=== PATIENT | female | born 1995 | race Asian ===

== ENCOUNTER 2025-05-14 17:12 | Inpatient (IN) | payer BC, SELFPAY ==
[2025-05-14] VITALS (12 sets, daily range): BP systolic 105–145; BP diastolic 74–105
[2025-05-14 10:53] LABS: Hematocrit 40.9 % (37.0-47.0); Hemoglobin 13.7 g/dL (12.0-16.0); Mean Corp Hgb Conc. 33.5 g/dL (33.0-37.0); Mean Corpuscular Volume 85.9 fL (81.0-99.0); Nucleated Red Blood Cells % 0 %; Platelet Count 235 10^3/uL (130-400); Red Cell Dist. Width 13.1 % (11.5-14.5)
[2025-05-14 11:27] LABS: Troponin I 0.025 ng/ml
--- NOTE | 2025-05-14 11:51 | ED.GENMED ---
History of Present Illness
General
Chief Complaint: Chest Pain
Source: patient and spouse
Exam Limitations: none
Time Seen by Provider: 05/14/25 10:44
Nursing documentation reviewed up to this point in time: agreed with
History of Present Illness
History of Present Illness:
30-year-old female with no reported chronic medical issues who was currently 11 weeks presents to the ER with her for evaluation of shortness of breath, palpitations, tachycardia and chest discomfort. Patient works as a
cardiology nurse practitioner. She says that she has been experiencing some mild shortness of breath during this and symptoms have been progressive over the past few weeks. She says that over the past day or 2 she has noticed increasing
palpitations and noted tachycardia. She has had heart rates 120s to 140s at rest. She does have some mild associated chest discomfort. She has not had any cough or fevers or chills. She has not had any significant swelling or pain in the legs.
She does note that she had a presyncopal event a few days ago that she attributed to not eating well. She denies any other complaints. She says she did not have this issue with prior . She denies any known cardiac history.
Review of Systems
Review of Systems
All Other Systems: ROS reviewed and negative except as documented in HPI and ROS
Constitutional: Denies fever
Respiratory: Reports trouble breathing; Denies cough
Cardiac: Reports chest pain and palpitations; Denies diaphoresis
ABD/GI: Denies abdominal pain
: Denies flank pain
Musculoskeletal: Denies neck pain or back pain
Neurological: Reports dizzy; Denies headache
Phy Exam
Physical Exam
Physical Exam:
General: Awake, alert, oriented x3; no acute distress
Head: Normocephalic, atraumatic
Eyes: Conjunctiva normal, sclera anicteric
Throat: Airway intact, handling secretions
Neck: Trachea midline, no JVD noted
Lungs: Clear to auscultation bilaterally, no wheezing, rales, rhonchi
Heart: Tachycardia with regular rhythm, no murmurs, gallops, or rubs
Abd: Soft, non distended, nontender
Neuro: Grossly intact
Extremities: No edema in extremities, equal pulses in all extremities
Scores
Heart Failure Risk
Heart Failure Risk Score: Not Applicable
Heart Score for Chest Pain Patients
STEMI patient?: Not applicable
Withdrawal Assessment of Alcohol
Withdrawal Assessment Completed?: Not applicable
Course
Orders/Labs/Results
Orders:
Orders
05/14/25 10:11
EKG [Electrocardiogram (*1)] Urgent
Reason for Study: Chest Pain
EKG- Treatment ONCE
05/14/25 10:40
BNP [NT-proBNP] Urgent
Complete Blood Count/With Diff Urgent
Troponin I Urgent
05/14/25 11:18
Echo 2D MMode Color/Doppler Urgent
Reason for Study: SOB, CP, tachycardia
05/14/25 11:28
Comprehensive Metabolic Panel Urgent
D-Dimer Urgent
Magnesium Urgent
05/14/25 12:39
US Periph Venous LOWER Ext Lui Urgent
Comment:
Reason For Exam: c/f PE,
05/14/25 15:09
CT Chest PE Study Urgent
Comment:
Reason For Exam: sob, chest pain, tachy, +dimer
05/14/25 15:22
Troponin I Urgent
05/14/25 15:30
0.9% Sodium Chloride 1000 ml [Nss] 1,000 ml IV BOLUS
05/14/25 16:18
Enoxaparin Sodium [Lovenox] 60 mg SC NOW STA
05/14/25 16:21
Consult Hematology [HEMATOLOGY CONSULT] Urgent
Consulting Provider: Oliverio Hernandez
Was physician already notified: Yes
PULMONARY CONSULT Urgent
Consulting Provider: Tanvir,Raminder S.
Was physician already notified: Yes
Abnormal Lab Results
05/14/25 05/14/25 05/14/25
10:40 11:28 15:22
WBC 11.5 H 10^3/uL
(4.8-10.8)
MPV 11.0 H fL
(7.4-10.4)
Abs Immat Gran (auto) 0.1 H 10^3/uL
(0-0.05)
Absolute Neuts (auto) 8.1 H 10^3/uL
(1.4-6.5)
Absolute Monos (auto) 0.8 H 10^3/uL
(0.1-0.6)
Lymphocytes % 20.1 L %
(20.5-51.1)
D-Dimer 5.30 H ug/mlFEU
(0.00-0.50)
Creatinine 0.4 L mg/dL
(0.6-1.0)
Troponin I 0.247 H* D ng/ml
05/14/25 10:40
05/14/25 11:28
Vital Signs
Initial and Last Documented VS:
Initial Vital Signs
Temp Pulse Resp BP Pulse Ox
36.9 C 141 16 145/94 99
05/14/25 10:10 05/14/25 10:10 05/14/25 10:10 05/14/25 10:10 05/14/25 10:10
Last Documented Vital Signs
Temp Pulse Resp BP Pulse Ox
36.9 C 119 16 115/84 97
05/14/25 10:10 05/14/25 15:30 05/14/25 15:30 05/14/25 15:00 05/14/25 15:30
MDM/Problems Addressed
Differential Diagnosis Includes:
Anemia, dysrhythmia, PE, anxiety
MDM/Problems Addressed:
30-year-old female who is currently 11 weeks presents for evaluation of shortness of breath, chest discomfort and palpitations, tachycardia. Heart rate in triage 140, normotensive, no tachypnea or hypoxia, no fever. Heart rate improved to
the 120s during my assessment. EKG appears consistent with sinus tachycardia but concerning with S1Q3T3 pattern. IV placed labs sent off including a CBC and a CMP, troponin, proBNP, D-dimer. Will hold off on chest x-ray for now�her lungs sound
completely clear to auscultation and she has no tachypnea or hypoxia and may require imaging to rule out PE depending on her initial workup and so patient wishes to forego x-ray at this point. I did discuss the case with cardiology to obtain an
echocardiogram on the patient. Will provide some IV fluids. Will reassess after the above.
Initial labs reviewed: CBC shows marginal leukocytosis but no anemia. CMP no clinically significant abnormalities. Troponin negative but detectable at 0.025. proBNP not elevated. Her D-dimer is markedly elevated at 5.3 at this point high concern
for pulmonary embolism. Case was discussed with pulmonology, BAGGAGE INSPECTOR, radiology regarding next best step for workup. Echocardiogram is currently underway and results are pending. Consensus recommendation was to proceed with bilateral lower
extremity ultrasound�if positive can treat empirically for presumed pulmonary embolism. If negative we will proceed with CT chest to rule out PE. Updated patient regarding this recommendation and she is in agreement to proceed with this plan.
Echo results reviewed with cardiology�reportedly normal EF, reportedly no signs of heart strain. Patient stable on reassessment although she remains tachycardic. Awaiting results of DVT study.
DVT study reportedly negative. Patient remains markedly tachycardic. Pulmonary assessed patient, agrees need for rule out PE. Will proceed with CT chest to rule out pulmonary embolism as discussed above.
Repeat troponin significantly uptrending at 0.247. We are awaiting results of CT of the chest. Patient remains tachycardic but normotensive. If PE scan negative would consider cardiomyopathy or myocarditis. Will plan for admission regardless of
results for further assessment and trending of troponins.
CT reviewed by me does appear to show pulmonary embolism. Discussed with pulmonary to review: Recommended initiating treatment with Lovenox, admission to IMU. Discussed with hematology for consultation. Discussed with hospitalist for admission.
Radiologist called back CT�confirmed positive for PE. I did place a call the patient's primary BAGGAGE INSPECTOR (Dr. Montana) and spoke with the on-call service to inform them that patient is being admitted with pulmonary embolism.
*Pulse Oximetry
SaO2: 99
Oxygen Mode of Delivery: Room air
Patient hypoxic: no (99%)
*EKG
Interpreted by ED Provider?: Yes
Heart Rate: 123
Rate: tachycardiac
Rhythm: sinus tachycardia
[place]: normal axis
Interval: normal interval
QRS Pattern: normal QRS
Ischemia: no ischemia (No ischemia but patient does have S1Q3T3)
*Critical Care Note
Total Time (30-74mins, 75-104mins- exclusive of procedures): Not Applicable
Data Reviewed
Source: patient and spouse
Patient Management
Discussion with other providers: PCP (Discussed with patient's primary OB) and Director [employer] (Discussed with cardiology, discussed with pulmonology, discussed with radiology, discussed with BAGGAGE INSPECTOR, discussed with hematology)
ED Attending Note
-
Portions of this chart may have been created with voice recognition software.� Occasional wrong word or��sound alike� substitutions may have occurred due to the inherent limitations of voice recognition software.
Discharge Plan
Departure
Patient Disposition: Admit
Date of Disposition: 05/14/25
Time of Disposition: 16:25
Admit to doctor: Monica
Presentation/result/management discussed w/ accepting MD/DO: Hospitalist
Discharge Problem:
Pulmonary embolism
Referrals:
Ivett Wills MD [Family Provider]
Interventions
Interventions:
*Risk Screen - Suicide Last Done: 05/14/25 10:13
*General Assessment Last Done: 05/14/25 11:11
*Neglect/Abuse Screening Last Done: 05/14/25 10:13
*ED- Fall Risk Assessment Last Done: 05/14/25 10:23
*ED COVID-19 Vaccine History Last Done: 05/14/25 10:23
ED- Cardiac Assessment Last Done: 05/14/25 10:23
Discharge Date and Time
Print Language: BURMESE
[2025-05-14 11:54] LABS: ALT (SGPT) 14 U/L (0-35); AST (SGOT) 19 U/L (14-36); Albumin 4.4 g/dl (3.5-5.0); Alkaline Phosphatase 44 U/L (38-126); Blood Urea Nitrogen 8 mg/dl (7-17); Calcium 9.6 mg/dl (8.4-10.2); Carbon Dioxide 23 mmol/L (22-30); Chloride 106 mmol/L (98-107); Glucose 92 mg/dl (70-99); Magnesium 1.9 mg/dl (1.6-2.3); Potassium 4.2 mmol/L (3.5-5.1); Sodium 137 mmol/L (135-145); Total Protein 7.8 g/dl (6.3-8.2); eGFR > 60.00
[2025-05-14 12:02] LABS: D-Dimer 5.30 ug/mlFEU (0.00-0.50)
[2025-05-14] MEDS: NSS 1000 IV (15:26)
[2025-05-14 16:10] LABS: Troponin I 0.247 ng/ml
[2025-05-14] MEDS: LOVENOX 60 MG SC (16:34)
--- NOTE | 2025-05-14 16:44 | HPS.HSE ---
Addendum entered and electronically signed by Lamine Anderson MD 05/14/25 17:06:
I saw and examined the patient.
The ANATOMIC PATHOLOGIST or PA's note was reviewed and I agree with the note.
Comment:
30F 11week , otherwise healthy, no prior HX PE pw SoB, chest discomfort and palpitation.
She is tachycardic at 120 , normotensive but not hypoxic and not O2 requirement, normotensive.
Chest CT:
Positive for PE with moderate to large clot burden predominantly in the right and left lower lobe lobar arteries, occupying a large volume of the vessel lumen.
Small component extending into the right middle lobe lobar artery.. On the left, a clot involves the peripheral left main pulmonary artery with a small component extending into the upper lobe pulmonary artery.
ECHO:
No strain on echo per cards but trop elevated at 0.247.
ASSESSMENT & PLAN
Submassive Bilateral PE likely provoked in setting of 11 weeks
- HX PE in cousin
- agree with wt base LMWH ( 60mg q12h)
-Consult Pulmonary
-Consult Hematology
-Await Echo result
NIMI setting to pulmonary embolism
-Continue to trend troponin
Code Status: Full Code
IMU
.
Original Note:
Family Physician
-
Family Physician: Ivett Wills MD
Chief Complaint
-
Shortness of Breath and Palpitations
History of Present Illness
Patient is a 30 y/o female currently 11 weeks who presents with shortness of breath, palpitations adn chest discomfort. Patient reports shortness of breath over the past few weeks and has noticed its been getting progressively worse.
Over the past few days she has been experiencing palpitations and has noted tachycardia. She reports associated mild chest discomfort. Work-up in the emergency department is positive for bilateral pulmonary embolism with evidence of right heart
strain. Patient denies any history or DVT/PE. She denies any close family members with history of blood clots but does note her cousin had a blood clot during .
Medical History
Past Medical History
Past Medical History: Reports None
Past Surgical History: Reports None
Social History
Tobacco: Non-smoker
Alcohol: None
Family History
Family History: Other (Denies parents or siblings with blood clots)
Allergies / Home Medications
Allergies reflects when Allergies were last updated in [facility].
Home Medications with original date entered in [facility]
Allergy/Medication List:
Allergies
Allergy/AdvReac Type Severity Reaction Status Date / Time
No Known Allergies Allergy Unverified 05/14/25 15:17
Home Medications
vit no.95-ferrous fumarate 28 mg-folic acid 800 mcg tablet () 1 tab PO DAILY 05/14/25
Review of Systems
-
A 12 point ROS was completed and negative except as noted: Yes
Constitutional: Denies Fever
Respiratory: Reports Trouble Breathing; Denies Cough
Cardiac: Reports Chest Pain and Palpitations
Musculoskeletal: Denies Muscle Pain or Edema
Physical Exam
Vital Signs
Vital Signs
Temp Pulse Resp BP Pulse Ox
98.5 F 119 16 115/84 97
05/14/25 10:10 05/14/25 15:30 05/14/25 15:30 05/14/25 15:00 05/14/25 15:30
Physical Exam
General: Comfortable and Conversant
HEENT: Anicteric and Moist mucous membranes
Respiratory: Clear and Non Labored Respirations
Cardiac: S1/S2, Regular Rhythm and Tachycardia
GI: Soft and Non Tender
Rectal: Deferred by Provider
Musculoskeletal: No Clubbing, No Cyanosis and No Edema
Skin: Warm and Dry
Neuro: Awake, Alert, Oriented and Nonfocal/grossly intact
Psych: Calm
Laboratory Results
-
05/14/25 10:40
05/14/25 11:28
Laboratory Results
Total Bilirubin 0.7 mg/dl (0.2-1.3) 05/14/25 11:28
AST 19 U/L (14-36) 05/14/25 11:28
ALT 14 U/L (0-35) 05/14/25 11:28
Alkaline Phosphatase 44 U/L (38-126) 05/14/25 11:28
Troponin I 0.247 ng/ml H* D 05/14/25 15:22
Peripheral Vascular Ultrasound:
No evidence of right or left lower extremity deep venous thrombosis.
Chest CT:
Positive for pulmonary embolism. Moderate to large clot burden predominantly in the right and left lower lobe lobar arteries, occupying a large volume of the vessel lumen. Small component extending into the right middle lobe lobar artery.. On the
left, a clot involves the peripheral left main pulmonary artery with a small component extending into the upper lobe pulmonary artery.
Right ventricular heart strain
Data Reviewed
-
CT Scan: Report Reviewed by me
Ultrasound: Report Reviewed by me
Lab Data: Labs Reviewed by me
Impression/Plan
-
Submassive Bilateral Pulmonary Embolism, likely provoked in setting of
-Admit to IMU
-Consult Pulmonary
-Consult Hematology
-Continue Lovenox
-Await Echo result
Non-Ischemic Myocardial Injury setting to pulmonary embolism
-Continue to trend troponin
Code Status: Full Code
--- NOTE | 2025-05-14 17:34 | CON.PUL ---
Consultation
Consultation Request
Date/Time Consultation Requested: 05/14/2025
Date/Time Consultation Performed: 05/14/2025
Medical History
-
Chief Complaint: Dyspnea, chest discomfort, near syncope.
History of Present Illness:
Patient is a 30 y/o female currently 11 weeks who presented to ED with shortness of breath, palpitations ane chest discomfort. Also reported an episode of lightheadedness and near syncope last week. Today patient felt palpitations as
well we chest pressure which prompted visit to ED. Patient had venous doppler exam which was negative for DVT. In view if high D-dimer, typical symptoms and high pre-test probability of VTE event, decision was made to proceed with CTA for further
evaluation after consensus discussion among ED, Pulmonary, Executive Services Administrator and Radiology providers. Patient was noted to have sub-massive PE and was admitted to the Hospitalist service for further management. Pulmonary consult was requested for further
input.
Medical History
Past Medical History
Past Medical History: Reports None
Past Surgical History: Reports None
Social History
Tobacco: Non-smoker, no alcohol or vaping. No Marijuana use.
Alcohol: None
Family History
Family History: Other (Denies parents or siblings with blood clots)
Allergies / Home Medications
Allergies / Home Medications
Allergies
Allergy/AdvReac Type Severity Reaction Status Date / Time
No Known Allergies Allergy Unverified 05/14/25 15:17
Home Medications
�Medication �Instructions �Recorded �Confirmed �Last Taken �Type
vit no.95-ferrous 1 tab PO DAILY 05/14/25 05/14/25 05/14/25 History
fumarate 28 mg-folic acid 800 mcg
tablet ()
Review of Systems
-
Constitutional: No Symptoms
EENT: No Symptoms
Respiratory: Other (Mild dyspnea with activity. No pleuritic pain)
Cardiac: Chest Pain (Chest pressure, palpitations )
Abdomen/GI: No Symptoms
: No Symptoms
Musculoskeletal: No Symptoms
Neuro: No Symptoms
Vitals / Labs / Diagnostic Testing
Vital Signs
Temp Pulse Resp BP Pulse Ox
98.5 F 123 22 118/85 99
05/14/25 10:10 05/14/25 17:00 05/14/25 17:00 05/14/25 16:37 05/14/25 17:00
Lab Data
05/14/25 10:40
05/14/25 11:28
Diagnostic Testing:
Physical Exam
-
HEENT: Normocephalic
Cardiovascular: S1/S2 (Sinus tachycardia noted)
Respiratory: Clear
GI: Soft and Non Distended
Neurology: Awake, Alert and Oriented
Skin: Warm
General: Comfortable
Assessment
-
#1. Acute PE, sub-massive, bilateral.
- Normotensive and not needing any supplemental O2. Tachycardia noted.
- Elevated biomarkers (troponin), reported strain on CT, await formal ECHO read.
- Admit to the hospital, Lovenox 1 mg/kg s.c. Stat followed by q12h dosing. Recommend hematology consult.
- Monitor closely, continue cardiac telemetry
- Tachycardia noted, related to underlying moderate to large clot burden
- Etiology: Likely provoked in the setting of . No prior h/o VTE during her prior , no family history, no prior h/o miscarriage. No known diagnoses of Lupus, RA or other auto-immune diseases. Await Hematology recommendations
regarding additional work up. Antiphospholipid Ab panel in AM.
- Tachycardia responded well to IVF Bolus 1 ltr. Will start LR infusion for another 1 ltr.
Other diagnoses:
- , currently 11 weeks
Data:
CT-PE 04/2025: Positive for pulmonary embolism. Moderate to large clot burden predominantly in the right and left lower lobe lobar arteries, occupying a large volume of the vessel lumen. Small component extending into the right middle lobe lobar
artery.. On the left, a clot involves the peripheral left main pulmonary artery with a small component extending into the upper lobe pulmonary artery.
Pulmonary artery branching order level of the most proximal pulmonary embolism: Peripheral left main pulmonary artery.
Right ventricular heart strain. The RV: LV ratio of 1.2.
Lower Ext venous dupplex 04/2025: No lower extremity DVT
--- NOTE | 2025-05-14 18:42 | PTCARENOTE ---
Received patient on admission from ED via stretcher; patient able to ambulate to bed without assistance. Denies CP/SOB; ST on monitor. Lungs clear t/o. at bedside; brought patient dinner. Patient requested to take her own vitamins;
both bottles sent to pharmacy. Yen pharmacist made aware and will adjust order.
[2025-05-14] MEDS: LR 1000 IV (21:00)
[2025-05-14 21:41] LABS: Troponin I 0.179 ng/ml
[2025-05-15] VITALS (14 sets, daily range): BP systolic 89–107; BP diastolic 56–85
[2025-05-15] MEDS: LOVENOX 60 MG SC ×2 (05:15→17:09)
[2025-05-15 05:57] LABS: Hematocrit 38.7 % (37.0-47.0); Hemoglobin 13.1 g/dL (12.0-16.0); Mean Corp Hgb Conc. 33.9 g/dL (33.0-37.0); Mean Corpuscular Volume 85.2 fL (81.0-99.0); Platelet Count 209 10^3/uL (130-400); Red Cell Dist. Width 13.1 % (11.5-14.5)
[2025-05-15 06:26] LABS: Troponin I 0.064 ng/ml
--- NOTE | 2025-05-15 06:34 | PTCARENOTE ---
No acute changes overnight. stayed overnight at bedside. LR @ 100mL/hr. Patient up ad boy to BR. Olga BARILLAS. Sp02 WNL. No gi/gu complaints. NSR/ST on telemetry. HR better controlled this morning; 80-100s. HR 100-140s when OOB last night.
Two brief episodes HR 150s. Patient denies any lightheadedness or dizziness. Call barron & tray table within reach.
--- NOTE | 2025-05-15 07:21 | W.PN.HOSP.TC ---
Today's Communication/Plan
-
Continue Lovenox 60mg q12h
Continue telemetry
Check factor V Leiden deficiency and prothrombin gene mutation
awaiting heme consult
Assessment / Plan
Assessment / Plan
30 y/o female currently 11 weeks who presented to ED with shortness of breath, palpitations and chest discomfort.
#Acute PE, sub-massive, bilateral.
- Mild dyspnea on exertion otherwise stable.
- Likely provoked in the setting of . No previous history of VTE.
- Intermittent tachycardia; likely secondary to underlying clot burden
- Initial D-dimer of 5.3
- Elevated troponin, reported strain on CT; however echo without any signs of heart strain
- Awaiting Hematology recommendations regarding additional work up. Antiphospholipid Ab panel pending
- Lovenox 1 mg/kg s.c. q12h dosing.
- Appreciate manager audio input
-Check factor V Leiden deficiency and prothrombin gene mutation
# NIMI setting to pulmonary embolism
- Now down trending troponin
# Leukocytosis
- Likely stress-induced; now resolved
Other diagnoses:
- , currently 11 weeks
Data:
CT-PE 04/2025: Positive for pulmonary embolism. Moderate to large clot burden predominantly in the right and left lower lobe lobar arteries, occupying a large volume of the vessel lumen. Small component extending into the right middle lobe lobar
artery.. On the left, a clot involves the peripheral left main pulmonary artery with a small component extending into the upper lobe pulmonary artery.
Pulmonary artery branching order level of the most proximal pulmonary embolism: Peripheral left main pulmonary artery.
Right ventricular heart strain. The RV: LV ratio of 1.2.
Lower Ext venous dupplex 04/2025: No lower extremity DVT
TRANSTHORACIC ECHOCARDIOGRAM 05/14/25:
SUMMARY
1. Left ventricular ejection fraction is normal with an ejection fraction of 52 % by River's biplane method of discs.
2. No evidence of pericardial effusion.
3. Normal left ventricle size and wall thickness.
4. Indexed left atrial volume is within normal range (15-34 ml/m2).
5. Moderate to severe tricuspid regurgitation.
6. Right ventricular cavity size cavity is mildly dilated.
7. Right ventricular systolic function is mildly decreased.
8. Tricuspid valve opens normally. moderate to severe tricuspid regurgitation. Estimated pulmonary artery pressure of 42 mmHg assuming a right atrial pressure of 3 mmHg.
CODE STATUS: Full code
Anticipated Discharge: Within 24 hours
Subjective/Interval History
-
Date of Service: May 15, 2025
Seen and examined at bedside. Patient sitting comfortably in the bed. Offers no new complaints. AFVSS
Objective Data
-
Labs:
Laboratory Results
05/15/25
05:27
WBC 10.4
Hgb 13.1
Hct 38.7
Plt Count 209
Vital Signs:
Vital Signs
Temp Pulse Resp BP Pulse Ox
98.3 F 98 18 92/67 98
05/15/25 05:15 05/15/25 06:00 05/14/25 20:01 05/15/25 06:00 05/15/25 06:00
I&O
05/14/25 05/15/25 05/16/25
06:59 06:59 06:59
Intake Total 480 / 480
Balance 480 / 480
Review of Systems
-
All other systems: Reviewed and negative (Except as noted)
Respiratory: Reports No Symptoms (Mild dyspnea with exertion)
Cardiac: Reports Palpitations
Physical Exam
-
General: Well Developed and Well Nourished
HEENT: Normocephalic
Respiratory: Clear to Auscultation and Non Labored Respirations
Cardiac: S1/S2 and Tachycardic
GI: Soft and Nontender
Skin: Warm and Dry
Neuro: Awake, Alert and Oriented
Psych: Calm
Data Reviewed
-
CT Scan: Report Reviewed by me
Ultrasound: Report Reviewed by me
Labs: Labs Reviewed by me, Discussed with Patient and Discussed with Family
Old Records: Reviewed
[2025-05-15] MEDS: NON-FORMULARY ITEM 2 UNIT PO (08:03)
[2025-05-15] MEDS: NON-FORMULARY ITEM 1 UNIT PO (08:04)
--- NOTE | 2025-05-15 08:44 | CON.ONC ---
Impression
Impression
30yoF PMH eczema presenting with submassive bilateral PE and R heart strain in setting of . Continued BARILLAS. Tachycardia improving but HR still elevated to 110s when speaking. BP 92/67. Afebrile.
Prior with gestational diabetes managed with diet and no other complications. FH antiphospholipid syndrome in cousin. D dimer 5.3. Troponin 0.064. Ab labs pending
Echo:
Left ventricular ejection fraction is normal with an ejection fraction of 52 % by River's biplane method of discs.
Moderate to severe tricuspid regurgitation.
Right ventricular cavity size cavity is mildly dilated. Right ventricular systolic function is mildly decreased.
Plan
Plan
Pulmonary embolus
- Continue on lovenox through and period. High risk .
- Follow up outpt with stroboroma operator. Antiphospholipid abs pending. If negative, further work up can be completed outpt.
Patient History
History of Present Illness
30yoF PMH eczema 11wk presenting with SOB and palpitations.
Pt describes 1 wk of SOB that she initially attributed to being . 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 On exam in the ED, there
was no evidence of DVT with elevated d-dimer that prompted a CTA with evidence of submassive PE. Echo demonstrates moderate to severe tricuspid regurgitation.
Today, pt reports resolved SOB and tachycardia. Denies swelling, abdominal pain, blurry vision, headache, dizziness. She reports improving SOB but continued dyspnea on exertion.
Pt reports no FH PE or clotting. She reports she has cousin who had multiple miscarriages and possibly diagnsoed with antiphospholipid syndrome. The sister of this cousin also recently had a miscarriage of unknown origin.
Past-Medical/Surgical History
Prior : gestational diabetes managed with diet. Denies hx pre-eclampsia
Patient Medication
�Medication �Instructions �Recorded �Confirmed �Last Taken �Type
vit no.95-ferrous 1 tab PO DAILY Supplement 05/14/25 05/14/25 05/14/25 History
fumarate 28 mg-folic acid 800 mcg
tablet ()
Active Medications
Generic Name Dose Route Start Last Admin
Trade Name Freq PRN Reason Stop Dose Admin
Acetaminophen 650 mg 05/14/25 18:09
Acetaminophen 325 Mg Tablet PO 06/11/25 18:08
Q4HPRN PRN
mild pain/temp > 100.4 F
Enoxaparin Sodium 60 mg 05/15/25 06:00 05/15/25 05:15
Enoxaparin Sodium 60 Mg/0.6 Ml Syringe SC 06/12/25 05:59 60 mg
Q12H JESSICA Administration
Once Daily 0 unit 05/15/25 08:00 05/15/25 08:04
- 1 Tab Daily PO 06/12/25 07:59 1 unit
DAILY JESSICA Administration
Dha Fish 0 unit 05/15/25 08:00 05/15/25 08:03
Oil Supplement - 2 PO 06/12/25 07:59 2 unit
Soft Gels Po Daily DAILY JESSICA Administration
Physical Exam
-
General: Well Developed, Well Nourished, No Apparent Distress and Comfortable
HEENT: Moist Mucous Membranes
Cardiology: Normal Sinus Rhythm and Other (loud HR)
Pulmonary: Clear
GI: Soft
Musculoskeletal: No Clubbing and No Edema
Extremities: Pulses Present
Neurology: Non Focal
Skin: Warm and Dry
Psych: Calm
Labs
Lab Results
WBC 10.4 10^3/uL (4.8-10.8) 05/15/25 05:27
RBC 4.54 10^6/uL (4.20-5.40) 05/15/25 05:27
Hgb 13.1 g/dL (12.0-16.0) 05/15/25 05:27
Hct 38.7 % (37.0-47.0) 05/15/25 05:27
MCV 85.2 fL (81.0-99.0) 05/15/25 05:27
MCH 28.9 pg (27.0-31.0) 05/15/25 05:27
MCHC 33.9 g/dL (33.0-37.0) 05/15/25 05:27
RDW 13.1 % (11.5-14.5) 05/15/25 05:27
Plt Count 209 10^3/uL (130-400) 05/15/25 05:27
MPV 11.0 fL (7.4-10.4) H 05/15/25 05:27
Abs Immat Gran (auto) 0.1 10^3/uL (0-0.05) H 05/14/25 10:40
Absolute Neuts (auto) 8.1 10^3/uL (1.4-6.5) H 05/14/25 10:40
Absolute Lymphs (auto) 2.3 10^3/uL (1.2-3.4) 05/14/25 10:40
Absolute Monos (auto) 0.8 10^3/uL (0.1-0.6) H 05/14/25 10:40
Absolute Eos (auto) 0.2 10^3/uL (0-0.7) 05/14/25 10:40
Absolute Basos (auto) 0.1 10^3/uL (0-0.2) 05/14/25 10:40
Immature Gran % 0.4 % (0-0.5) 05/14/25 10:40
Neutrophils % 70.8 % (42.2-75.2) 05/14/25 10:40
Lymphocytes % 20.1 % (20.5-51.1) L 05/14/25 10:40
Monocytes % 6.6 % (1.7-9.3) 05/14/25 10:40
Eosinophils % 1.6 % (0-6) 05/14/25 10:40
Basophils % 0.5 % (0-2) 05/14/25 10:40
Creatinine 0.4 mg/dL (0.6-1.0) L 05/14/25 11:28
Vital Signs
Vital Signs
Temp Pulse Resp BP Pulse Ox
98.3 F 98 18 92/67 98
05/15/25 05:15 05/15/25 06:00 05/14/25 20:01 05/15/25 06:00 05/15/25 06:00
--- NOTE | 2025-05-15 10:22 | W.PN.PUL.V3 ---
Today's Communication / Plan
-
Continue Lovenox
Increase activity
Monitor tachycardia
Outpatient pulmonary and hematologic follow-up
Assessment
-
#1. Acute PE, sub-massive, bilateral-possibly provoked from underlying
Respiratory status has improved
Supplemental oxygen if needed-currently on room air
Incentive spirometry
Pulmonary embolism unclear if provoked from underlying or underlying hypercoagulable state
Continue Lovenox
Hematology evaluation-type of anticoagulation and length of therapy
No previous clots, no family history, no history of miscarriages, no known underlying rheumatologic disorder
Hypercoagulable workup
Lower extremity ultrasound without evidence for DVT
CT chest summarized below
Troponin trending down
Echocardiogram 05/14/2025-EF 52%, moderate to severe tricuspid regurgitation, right ventricular cavity size mildly dilated, right ventricular systolic function mildly decreased, PA systolic estimated 42
Eventual follow-up echocardiogram
Nutrition
Begin ambulation and monitor heart rate response
Reviewed with at the bedside
Anticipate discharge in the next 24 if continues to improve
Outpatient pulmonary follow-up to ensure clot resolution
Outpatient hematology follow-up
Other diagnoses:
- , currently 11 weeks
Data:
CT-PE 04/2025: Positive for pulmonary embolism. Moderate to large clot burden predominantly in the right and left lower lobe lobar arteries, occupying a large volume of the vessel lumen. Small component extending into the right middle lobe lobar
artery.. On the left, a clot involves the peripheral left main pulmonary artery with a small component extending into the upper lobe pulmonary artery.
Pulmonary artery branching order level of the most proximal pulmonary embolism: Peripheral left main pulmonary artery.
Right ventricular heart strain. The RV: LV ratio of 1.2.
Lower Ext venous dupplex 04/2025: No lower extremity DVT
Subjective Data
-
Date of Service:
Date of Service: May 15, 2025
Chief Complaint: Pulmonary Follow Up and VTE Follow Up
Subjective:
Less short of breath, still somewhat tachycardic, no chest pain, abdominal pain, pleurisy, chest congestion or productive cough
Review of Systems
General: Other (Per HPI)
Objective Data
Data Reviewed
Vital Signs / I&O:
Vital Signs
Temp Pulse Resp BP Pulse Ox
98.4 F 108 18 100/77 98
05/15/25 07:00 05/15/25 08:00 05/14/25 20:01 05/15/25 08:00 05/15/25 08:00
Intake and Output
05/14/25 05/15/25 05/16/25
06:59 06:59 06:59
Intake Total 480 / 480
Balance 480 / 480
SaO2: 98
Physical Exam
General: Respiratory Distress (n) and Comfortable
HEENT: Normocephalic, Anicteric and Moist Mucous Membranes
Cardiovascular: Regular Rhythm
Respiratory: Wheeze (n), Crackles (n), Rhonchi (n), Non-Labored Respirations and Accessory Resp Muscle Use (n)
GI: Soft and Non Distended
Neurology: Awake, Alert and No Motor Deficits
Skin: Warm, Good Color and Cyanosis (n)
Labs/Micro/Reports
Lab Data
05/15/25 05:27
05/14/25 11:28
--- NOTE | 2025-05-15 14:01 | PTCARENOTE ---
Assumed care of patient at beginning of this shift from previous RN with O2 10L midflow in use. Able to wean to 8L midflow while OOB to chair; needed to be increased when getting back into bed: briefly to 12L then to 10L midflow. Some BARILLAS noted,
otherwise asymptomatic. Patient has her own nicotine lozenges which she states she uses for anxiety; prn order entered by Dr Alberto that patient may use her own. Pharmacist checked and provided bar code to scan. Daughter at bedside when Dr Alberto and Dr
Lizaekehoang in to see patient. CM in to see patient and daughter. See worklist for full assessment and vital signs; see MAR for med administration.
--- NOTE | 2025-05-15 17:09 | CM ---
analytic manager reviewed patient's chart and met with patient and patient lives with spouse in a 2 story home, patient is independent with adl's and ambulation, no dme, home when stable, no needs.
PCP: Ivett Wills
Pharmacy: [facility] in [place].
--- NOTE | 2025-05-15 19:14 | PTCARENOTE ---
Reviewed lovenox injection with patient; she was able to self-inject with little cuing. She stated she felt comfortable with injection.
--- NOTE | 2025-05-15 21:47 | PTCARENOTE ---
Patient aao x3 since start of shift, affect pleasant, patient able to make needs known and using call barron appropriately. NSR to ST on the monitor. Lungs cta throughout, slight BARILLAS noted with ambulation, 98% on ra. Patient denies pain, call barron
within reach. Will continue to monitor patient closely.
[2025-05-16] VITALS (10 sets, daily range): BP systolic 88–112; BP diastolic 57–76
[2025-05-16] MEDS: LOVENOX 60 MG SC (05:34)
--- NOTE | 2025-05-16 05:39 | PTCARENOTE ---
Patient educated on Lovenox injection. Patient demonstrated correct injection technique, no further questions or concerns.
[2025-05-16 06:12] LABS: Hematocrit 35.0 % (37.0-47.0); Hemoglobin 12.0 g/dL (12.0-16.0); Mean Corp Hgb Conc. 34.3 g/dL (33.0-37.0); Mean Corpuscular Volume 84.5 fL (81.0-99.0); Platelet Count 213 10^3/uL (130-400); Red Cell Dist. Width 12.9 % (11.5-14.5)
[2025-05-16 06:22] LABS: Blood Urea Nitrogen 7 mg/dl (7-17); Calcium 9.2 mg/dl (8.4-10.2); Carbon Dioxide 21 mmol/L (22-30); Chloride 106 mmol/L (98-107); Estimated Creatinine Clearance 106 ml/min; Glucose 94 mg/dl (70-99); Potassium 4.3 mmol/L (3.5-5.1); Sodium 134 mmol/L (135-145); eGFR > 60.00
--- NOTE | 2025-05-16 07:20 | W.PN.HOSP.TC ---
Today's Communication/Plan
-
Continue Lovenox upon discharge
Outpatient follow-up with pulmonology and hematology.
Pending labs: Antiphospholipid antibodypanel, prothrombin gene mutation and factor V mutation
Assessment / Plan
Assessment / Plan
30 y/o female currently 11 weeks who presented to ED with shortness of breath, palpitations and chest discomfort.
#Acute PE, sub-massive, bilateral.
- Mild dyspnea on exertion otherwise stable.
- Likely provoked in the setting of . No previous history of VTE.
- Intermittent tachycardia; likely secondary to underlying clot burden
- Initial D-dimer of 5.3
- Elevated troponin, reported heart strain on CT and echo
- Antiphospholipid Ab panel pending
- Lovenox 60mg (1 mg/kg) s.c. q12h dosing.; Continue until close to due date.
- Appreciate installation & maintenance executive and heme/Onc input
- factor V Leiden deficiency and prothrombin gene mutation labs pending
- Outpatient pulmonary and hematologic follow-up
# NIMI setting to pulmonary embolism
- Peaked and trended down
# Leukocytosis
- Likely stress-induced; borderline
Other diagnoses:
- , currently 11 weeks
Data:
CT-PE 04/2025: Positive for pulmonary embolism. Moderate to large clot burden predominantly in the right and left lower lobe lobar arteries, occupying a large volume of the vessel lumen. Small component extending into the right middle lobe lobar
artery.. On the left, a clot involves the peripheral left main pulmonary artery with a small component extending into the upper lobe pulmonary artery.
Pulmonary artery branching order level of the most proximal pulmonary embolism: Peripheral left main pulmonary artery.
Right ventricular heart strain. The RV: LV ratio of 1.2.
Lower Ext venous dupplex 04/2025: No lower extremity DVT
TRANSTHORACIC ECHOCARDIOGRAM 05/14/25:
SUMMARY
1. Left ventricular ejection fraction is normal with an ejection fraction of 52 % by River's biplane method of discs.
2. No evidence of pericardial effusion.
3. Normal left ventricle size and wall thickness.
4. Indexed left atrial volume is within normal range (15-34 ml/m2).
5. Moderate to severe tricuspid regurgitation.
6. Right ventricular cavity size cavity is mildly dilated.
7. Right ventricular systolic function is mildly decreased.
8. Tricuspid valve opens normally. moderate to severe tricuspid regurgitation. Estimated pulmonary artery pressure of 42 mmHg assuming a right atrial pressure of 3 mmHg.
CODE STATUS: Full code
Anticipated Discharge: Today
Subjective/Interval History
-
Date of Service: May 16, 2025
Seen and examined at bedside. Patient sitting comfortably in the bed. Offers no new complaints. AFVSS. Reports significant improvement in dyspnea on exertion
Objective Data
-
Labs:
Laboratory Results
05/16/25
05:48
WBC 11.7 H
Hgb 12.0
Hct 35.0 L
Plt Count 213
Sodium 134 L
Potassium 4.3
Chloride 106
Carbon Dioxide 21 L
BUN 7
Creatinine 0.4 L
Glucose 94
Calcium 9.2
Vital Signs:
Vital Signs
Temp Pulse Resp BP Pulse Ox
98.3 F 98 18 112/66 99
05/16/25 02:29 05/16/25 00:04 05/14/25 20:01 05/16/25 00:04 05/16/25 00:04
I&O
05/15/25 05/16/25 05/17/25
06:59 06:59 06:59
Intake Total 480 / 480 480 / 480
Balance 480 / 480 480 / 480
Review of Systems
-
All other systems: Reviewed and negative (Except as noted)
Respiratory: Reports No Symptoms (Mild dyspnea with exertion)
Physical Exam
-
General: Well Developed, Well Nourished and No Apparent Distress
HEENT: Normocephalic
Respiratory: Clear to Auscultation and Non Labored Respirations
Cardiac: S1/S2 and Tachycardic
GI: Soft, Nontender and Nondistended
Skin: Warm and Dry
Neuro: Awake, Alert and Oriented
Psych: Calm
Data Reviewed
-
Labs: Labs Reviewed by me, Discussed with Physician and Discussed with Patient
--- NOTE | 2025-05-16 08:41 | W.PN.ONC ---
Today's Communication / Plan
-
Plan reviewed with attending.
Impression
Impression
30yoF PMH eczema presenting with submassive bilateral PE and R heart strain in setting of . Improved BARILLAS. Tachycardia improving. Afebrile vitals stable.
Prior with gestational diabetes managed with diet and no other complications. FH antiphospholipid syndrome in cousin. D dimer 5.3. Troponin 0.064. Ab labs pending
Pt reports long flight to [place] about 2 weeks ago. Denies lower leg swelling, calf pain.
Echo:
Left ventricular ejection fraction is normal with an ejection fraction of 52 % by River's biplane method of discs.
Moderate to severe tricuspid regurgitation.
Right ventricular cavity size cavity is mildly dilated. Right ventricular systolic function is mildly decreased.
Plan
Plan
Pulmonary embolus
- Continue on therapeutic lovenox through and period.
- Follow up outpt with head counselor in 4-6wks. Antiphospholipid abs pending. Please reach out sooner with any questions or concerns.
Subjective/Objective
Subjective/Objective
This morning pt reports improving BARILLAS. She has been ambulating around unit.
PE:
Pulm: clear lung sounds bilaterally
Cardiac: Tachycardic, normal rhythm
Extremities: no edema or erythema
Vital Signs:
Vital Signs
Temp Pulse Resp BP Pulse Ox
98.5 F 98 18 112/66 99
05/16/25 08:08 05/16/25 00:04 05/14/25 20:01 05/16/25 00:04 05/16/25 00:04
Lab Results:
Laboratory Data
WBC 11.7 10^3/uL (4.8-10.8) H 05/16/25 05:48
Hgb 12.0 g/dL (12.0-16.0) 05/16/25 05:48
Plt Count 213 10^3/uL (130-400) 05/16/25 05:48
eGFR > 60.00 05/16/25 05:48
[2025-05-16] MEDS: NON-FORMULARY ITEM 2 UNIT PO (09:06)
[2025-05-16] MEDS: NON-FORMULARY ITEM 1 UNIT PO (09:08)
--- NOTE | 2025-05-16 10:37 | W.PN.PUL.V3 ---
Today's Communication / Plan
-
Lovenox continues
Stable for proposed discharge.
Eventual outpatient pulmonary follow-up with PFTs/ Follow-up CT chest.
Additional hypercoagulable workup as an outpatient
Assessment
-
#1. Acute PE, sub-massive, bilateral-possibly provoked from underlying
Respiratory status continues to improve
Supplemental oxygen if needed-currently on room air
Incentive spirometry encouraged.
Pulmonary embolism unclear if provoked from underlying or underlying hypercoagulable state
Continue Lovenox
Hematology evaluation-type of anticoagulation and length of therapy-Correspondence reviewed-suspected pulmonary embolism provoked by and air travel and may have started and pelvic veins as lower extremity Dopplers were negative
No previous clots, no family history, no history of miscarriages, no known underlying rheumatologic disorder
Hypercoagulable workup
Lower extremity ultrasound without evidence for DVT
CT chest summarized below
Troponin trending down
Echocardiogram 05/14/2025-EF 52%, moderate to severe tricuspid regurgitation, right ventricular cavity size mildly dilated, right ventricular systolic function mildly decreased, PA systolic estimated 42
Eventual follow-up echocardiogram
Nutrition
Begin ambulation and monitor heart rate response
Reviewed with at the bedside
.
Patient stable for proposed discharge
Outpatient pulmonary follow-up to ensure clot resolution
Outpatient hematology follow-up
Other diagnoses:
- , currently 11 weeks
Data:
CT-PE 04/2025: Positive for pulmonary embolism. Moderate to large clot burden predominantly in the right and left lower lobe lobar arteries, occupying a large volume of the vessel lumen. Small component extending into the right middle lobe lobar
artery.. On the left, a clot involves the peripheral left main pulmonary artery with a small component extending into the upper lobe pulmonary artery.
Pulmonary artery branching order level of the most proximal pulmonary embolism: Peripheral left main pulmonary artery.
Right ventricular heart strain. The RV: LV ratio of 1.2.
Lower Ext venous dupplex 04/2025: No lower extremity DVT
Subjective Data
-
Date of Service:
Date of Service: May 16, 2025
Chief Complaint: Pulmonary Follow Up and VTE Follow Up
Subjective:
She feels much improved. She does not insurance breath, or tachycardia is much improved, she offers no complaints, chest pain, pleurisy, productive cough, or abdominal pain
Review of Systems
General: Other ( per HPI)
Objective Data
Data Reviewed
Vital Signs / I&O:
Vital Signs
Temp Pulse Resp BP Pulse Ox
98.5 F 107 18 107/67 98
05/16/25 08:08 05/16/25 09:03 05/14/25 20:01 05/16/25 09:03 05/16/25 09:25
Intake and Output
05/15/25 05/16/25 05/17/25
06:59 06:59 06:59
Intake Total 480 / 480 480 / 480
Balance 480 / 480 480 / 480
SaO2: 98
Physical Exam
General: Respiratory Distress (n) and Comfortable
HEENT: Normocephalic, Anicteric and Moist Mucous Membranes
Cardiovascular: Regular Rhythm
Respiratory: Wheeze (n), Crackles (n), Rhonchi (n), Non-Labored Respirations and Accessory Resp Muscle Use (n)
GI: Soft and Non Distended
Neurology: Awake, Alert and No Motor Deficits
Skin: Warm, Good Color and Cyanosis (n)
Labs/Micro/Reports
Lab Data
05/16/25 05:48
05/16/25 05:48
--- NOTE | 2025-05-16 12:48 | CM ---
Patient will d/c home today
No CM needs at this time
Plan: Home, no needs
--- NOTE | 2025-05-16 13:25 | W.DCSUMMARY ---
Documented by User: Dillon Hair MD, Resident 05/16/25 13:38
Discharge Summary
Discharge Data
Date of Admission: 05/14/25
Date of Discharge: 05/16/25
-
Pending Results: Yes
Hospital Course
Discharging Physician : Dillon Hair MD ; David San DO
Disposition : Home
Primary care physician : Ivett Johnson
Principal Discharge diagnosis : Acute pulmonary embolism, sub-massive, bilateral
Chronic Discharge diagnosis : none
Hospital Course : 30 y/o female currently 11 weeks who presented to ED with shortness of breath, palpitations and chest discomfort. CT showed b/l PE.
1- Acute PE, sub-massive, bilateral.
Initial EKG appears consistent with sinus tachycardia but concerning with S1Q3T3 pattern. D-dimer was elevated. DVT study was negative. Plan was made to get a CT PE study after discussion with the patient. Patient was tachycardic with elevated
troponins of 0.247 which later trended down. Her dyspnea on exertion also improved before discharge. CT showed bilateral PE and she was started on weight-based Lovenox and admitted, pulmonology and hematology was consulted which follow the patient
during her stay at the hospital. Echo was obtained with results below. Additional lab testing including antiphospholipid antibody panel factor V Leiden mutation and prothrombin gene mutation were ordered however the results remain pending at the
time of discharge. There was significant improvement in her symptoms and she was discharged with instructions to continue Lovenox 60 mg every 12 hours. Advised to follow-up outpatient with family doctor and [facility] [facility] [facility] within 1 week. Follow-up with
outpatient hematology in 2 to 3 weeks as well as outpatient pulmonology for additional/repeat testing possibly repeat CAT scan in 4 to 6-week. Patient verified understanding. Strict return precautions were reviewed with the patient. Patient is
aware that she will have to stay on Lovenox for the duration of and possibly next 6 weeks. Additional details will be discussed by hematology outpatient.
Important imaging findings : US Periph Venous LOWER Ext Lui:
No evidence of right or left lower extremity deep venous thrombosis.
CT Chest PE Study: Examination is positive for pulmonary embolism. Moderate to large clot burden predominantly in the right and left lower lobe lobar arteries, occupying a large volume of the vessel lumen. On the right, there is a small component
extending into the right middle lobe lobar pulmonary artery. On the left, a clot involves the peripheral left main pulmonary artery with a small component extending into the upper lobe pulmonary artery.
Pulmonary artery branching order level of the most proximal pulmonary embolism: Peripheral left main pulmonary artery.
Right ventricular heart strain. The RV: LV ratio of 1.2.
Procedure findings : TRANSTHORACIC ECHOCARDIOGRAM REPORT:
SUMMARY
1. Left ventricular ejection fraction is normal with an ejection fraction of 52 % by River's biplane method of discs.
2. No evidence of pericardial effusion.
3. Normal left ventricle size and wall thickness.
4. Indexed left atrial volume is within normal range (15-34 ml/m2).
5. Moderate to severe tricuspid regurgitation.
6. Right ventricular cavity size cavity is mildly dilated.
7. Right ventricular systolic function is mildly decreased.
8. Tricuspid valve opens normally. moderate to severe tricuspid regurgitation. Estimated pulmonary artery pressure of 42 mmHg assuming a right atrial pressure of 3 mmHg.
Discharge Plan
-
Patient Disposition: Home (Routine Discharge)
Discharge Diagnosis/Procedures: Acute pulmonary embolism, sub-massive, bilateral
Condition: Good
Diet: Regular
Activity: No restrictions
Driving Restrictions: As prior to admission
Bathing Restrictions: None
Instructions: Pulmonary embolism - Discharge instructions
Stand Alone Forms: Return to Work
Referrals:
Cynthia Ramey MD [Active, Pulmonary Medicine] - in four to six weeks
Referral Note: Eventual PFTs, repeat echocardiogram, and repeat CT chest
Lisa Galloway MD [Active, Hematology / Oncology] - in four to six weeks
Ivett Wills MD [Family Provider] - in less than 1 week
Additional Discharge Medication Instructions: Continue enoxaparin 60 mg subcutaneous every 12 hours.
Please follow-up with your family doctor within 1 week for additional scripts.
Please follow-up with outpatient pulmonology in 4 to 6 weeks for repeat testing and additional evaluation.
You will receive a call from outpatient hematology office to schedule an appointment in 4 to 6-week.
You should continue the Lovenox through and .
You may return to work after follow-up with outpatient family doctor.
Please follow-up with your [facility] [facility] outpatient within 1 week as well
Antiphospholipid Ab panel, factor V Leiden mutation and prothrombin gene mutation labs pending at the time of discharge.
Prescriptions:
New
enoxaparin 60 mg/0.6 mL syringe
60 mg SC Q12H Qty: 60 0RF
Continued
PNV no.95-ferrous fumarate-FA [] 28 mg iron- 800 mcg Tablet
1 tab PO DAILY
Discharge Orders:
Discharge Patient (As Directed); Ordered 05/16/25
Ordered By: Dillon Hair
Discharge Date and Time
Discharge Date/Time: 05/16/25 12:45
Print Language: [place]

Documented by User: David San DO 05/16/25 14:11
Discharge Summary
Discharge Data
Date of Admission: 05/14/25
Date of Discharge: 05/16/25
Total time spent discharging patient (in min): 32
-
Additional Pending Results:
Factor V Leiden, prothrombin gene mutation, antiphospholipid antibody panel
Discharge Plan
-
Patient Disposition: Home (Routine Discharge)
Discharge Diagnosis/Procedures: Acute pulmonary embolism, sub-massive, bilateral
Condition: Good
Diet: Regular
Activity: No restrictions
Driving Restrictions: As prior to admission
Bathing Restrictions: None
Instructions: Pulmonary embolism - Discharge instructions
Stand Alone Forms: Return to Work
Referrals:
Cynthia Ramey MD [Active, Pulmonary Medicine] - in four to six weeks
Referral Note: Eventual PFTs, repeat echocardiogram, and repeat CT chest
Lisa Galloway MD [Active, Hematology / Oncology] - in four to six weeks
vIett Wills MD [Family Provider] - in less than 1 week
Additional Discharge Medication Instructions: Continue enoxaparin 60 mg subcutaneous every 12 hours.
Please follow-up with your family doctor within 1 week for additional scripts.
Please follow-up with outpatient pulmonology in 4 to 6 weeks for repeat testing and additional evaluation.
You will receive a call from outpatient hematology office to schedule an appointment in 4 to 6-week.
You should continue the Lovenox through and .
You may return to work after follow-up with outpatient family doctor.
Please follow-up with your [employer] [facility] outpatient within 1 week as well
Antiphospholipid Ab panel, factor V Leiden mutation and prothrombin gene mutation labs pending at the time of discharge.
Prescriptions:
New
enoxaparin 60 mg/0.6 mL syringe
60 mg SC Q12H Qty: 60 0RF
Continued
PNV no.95-ferrous fumarate-FA [] 28 mg iron- 800 mcg Tablet
1 tab PO DAILY
Discharge Orders:
Discharge Patient (As Directed); Ordered 05/16/25
Ordered By: Dillon Hair
Discharge Date and Time
Discharge Date/Time: 05/16/25 12:45
Print Language: [place]
[2025-05-18 01:54] LABS: Phosphatidylserine Ab, IgA 0 APS (0-19); Phosphatidylserine Ab, IgG 0 GPS (0-15); Phosphatidylserine Ab, IgM 1 MPS (0-21)
[2025-05-18 03:00] LABS: Beta-2-Glycoprotein I Ab. IgA <10 SAU (<=20); Beta-2-Glycoprotein I Ab. IgG <10 SGU (<=20); Beta-2-Glycoprotein I Ab. IgM <10 SMU (<=20)
[2025-05-22 23:34] LABS: PT (F2) G20210A Variant Negative; Pt Gene Variant-PCR Specimen Whole Blood
== END 2025-05-16 12:45 | disposition home or self-care (01) | DRG 831 ==
LOC: IMU 17:12
PROVIDERS: Physician Assistant Medical; ADMITTING PHYSICIAN Internal Medicine; ATTENDING PHYSICIAN Internal Medicine; CONSULT PHYSICIAN Internal Medicine; EMERGENCY PHYSICIAN Emergency Medicine; FAMILY PHYSICIAN Student in an Organized Health Care Education/Training Program; OTHER PHYSICIAN Internal Medicine Hematology & Oncology
DX: O88.811 Other embolism in pregnancy, first trimester (principal); I26.94 Multiple subsegmental thrombotic pulmonary emboli without acute cor pulmonale; I26.99 Other pulmonary embolism without acute cor pulmonale; O99.411 Diseases of the circulatory system complicating pregnancy, first trimester; I5A Non-ischemic myocardial injury (non-traumatic); Z3A.11 11 weeks gestation of pregnancy; R55 Syncope and collapse; R00.2 Palpitations; I07.1 Rheumatic tricuspid insufficiency; D72.829 Elevated white blood cell count, unspecified; Z86.32 Personal history of gestational diabetes
CPT/HCPCS: 71275; 80048; 80053; 81240; 83735; 83880; 84484; 85025; 85027; 85220; 85379; 86146; 86147; 86148; 93005; 93306; 93970; 96361; 96372; 99285; Q9967